=== PATIENT | female | born 1980 | race Caucasian/White ===

== ENCOUNTER 2019-09-13 10:06 | Outpatient (CLI) | payer OTHER, SELFPAY ==
--- NOTE | ~2019-09-13 | XR_ITS ---
EXAMINATION: XR ankle RT min 3V DATE: 09/13/2019 10:24 INDICATION: Achilles tendinitis, unspecified. TECHNIQUE: 4 views of right ankle were obtained. COMPARISON: None. FINDINGS: Bone alignment is normal. No fracture. Joint spaces are well maintained. There is an enthes ophyte at plantar aspect of calcaneal tuberosity. IMPRESSION: 1. No fracture. Reviewed, dictated and finalized at location A. IMPRESSION: 1. No fracture.
== END 2019-09-13 10:07 | disposition home or self-care (01) ==
LOC: ANHIMG 10:10
PROVIDERS: PCP Family Medicine; Visit Provider Family Medicine
DX: M76.60 Achilles tendinitis, unspecified leg (principal)
CPT/HCPCS: 73610